=== PATIENT | male | born 1960 | race Caucasian/White ===

== ENCOUNTER 2022-07-23 15:21 | Emergency (ER) | payer OTHER ==
[~2022-07-23] VITALS: Ht 182.9 cm; Wt 100.7 kg
[~2022-07-23 15:21] MED LIST: CRUTCH3 USE; DEPAKOTE; HYDACE5 PO; NAPR550 PO
[2022-07-23 15:56] LABS: BASOPHILS ABSOLUTE AUTO 0.03 K/mm3 (0.00-0.23); BASOPHILS PERCENT AUTO 1 % (0-2); EOSINOPHILS PERCENT AUTO 2 % (0-6); Hematocrit 35.9 % (37.0-53.0); IMMATURE GRAN ABSOLUTE AUTO 0.01 K/mm3 (0.00-0.10); IMMATURE GRAN PERCENT AUTO 0 % (0-1); LYMPHOCYTES ABSOLUTE AUTO 3.13 K/mm3 (0.84-5.20); LYMPHOCYTES PERCENT AUTO 47 % (21-46); MONOCYTES ABSOLUTE AUTO 0.58 K/mm3 (0.16-1.47); MONOCYTES PERCENT AUTO 9 % (4-13); Mean Corpuscular HGB 32.3 pg (26.0-34.0); Mean Corpuscular HGB Conc 36.2 g/dL (31.5-36.5); Mean Corpuscular Volume 89 fL (80-100); Mean Platelet Volume 10.2 fL (9.1-12.4); NEUTROPHILS ABSOLUTE AUTO 2.81 K/mm3 (1.96-9.15); NEUTROPHILS PERCENT AUTO 42 % (41-73); Platelet Count 173 K/mm3 (150-400); RDW Coefficient Variation 12.4 % (11.7-14.2); RDW Standard Deviation 40.8 fL (35.1-46.3); Red Blood Cell Count 4.03 M/mm3 (4.30-5.90); White Blood Cell Count 6.66 K/mm3 (4.00-11.30)
[2022-07-23 16:16] LABS: Albumin, Blood 3.7 g/dL (3.4-5.0); Albumin/Globulin Ratio 1.1 (0.8-1.8); Bilirubin, Total 0.4 mg/dL (0.1-1.0); Bun/Creatinine Ratio 8.8 (12.0-20.0); Creatinine, Blood 1.02 mg/dL (0.60-1.20); Globulin, Blood 3.3 g/dL (2.2-4.0); Potassium, Blood 3.7 mmol/L (3.5-5.5)
== END 2022-07-23 19:38 | disposition left against medical advice (07) ==
LOC: ER 15:21
PROVIDERS: Physician Assistant
DX: R07.9 Chest pain, unspecified (principal); Z53.21 Procedure and treatment not carried out due to patient leaving prior to being seen by health care provider
CPT/HCPCS: 36415; 71046; 80053; 83880; 84484; 85025; 93005; 93010

== ENCOUNTER 2022-11-19 06:09 | Emergency (ER) | payer OTHER ==
[~2022-11-19] VITALS: Ht 188 cm; Wt 113.0 kg
[2022-11-19 06:45] VITALS: BP 131/66
== END 2022-11-19 07:24 | disposition home or self-care (01) ==
LOC: ER 06:09
DX: R60.0 Localized edema (principal); F17.210 Nicotine dependence, cigarettes, uncomplicated; Z88.2 Allergy status to sulfonamides
CPT/HCPCS: 99283

== ENCOUNTER 2023-06-09 11:25 | Emergency (ER) | payer OTHER ==
[~2023-06-09] VITALS: Ht 182.9 cm; Wt 102.5 kg
[2023-06-09] MEDS ORDERED: Naprosyn500 MG PO (11:59)
[2023-06-09 12:25] VITALS: BP 126/76
== END 2023-06-09 12:25 | disposition home or self-care (01) ==
LOC: ER 11:25
DX: M25.572 Pain in left ankle and joints of left foot (principal); F17.200 Nicotine dependence, unspecified, uncomplicated; F20.0 Paranoid schizophrenia; Z88.2 Allergy status to sulfonamides; Z79.899 Other long term (current) drug therapy
CPT/HCPCS: 99283; A9270

== ENCOUNTER 2024-02-03 16:18 | Emergency (ER) | payer OTHER ==
[~2024-02-03] VITALS: Ht 182.9 cm; Wt 99.8 kg
[~2024-02-03 16:18] MED LIST changes: +CYCL10 PO; +FAMO20 PO; +LIDO700A20 TOP; +Naprosyn500 MG PO
[2024-02-03 18:29] LABS: Source, Urine Clean Catch
[2024-02-03 18:34] LABS: Appearance, Urine Clear (Clear); Bilirubin, Urine Neg (Neg); Blood, Urine Neg (Neg); Color, Urine Yellow (P-Yellow); Glucose Qualitative, Urine 2+ (Neg); Ketones, Urine Neg (Neg); Leukocyte Esterase, Urine Neg (Neg); Nitrite, Urine Neg (Neg); Protein, Urine Neg (Neg); Urobilinogen, Urine NORM (Normal); pH, Urine 6.5 (5.0-8.0)
[2024-02-03 18:49] LABS: BASOPHILS ABSOLUTE AUTO 0.05 K/mm3 (0.00-0.23); BASOPHILS PERCENT AUTO 0 % (0-2); EOSINOPHILS ABSOLUTE AUTO 0.01 K/mm3 (0.00-0.68); EOSINOPHILS PERCENT AUTO 0 % (0-6); Hematocrit 35.4 % (37.0-53.0); Hemoglobin 12.3 g/dL (13.5-17.5); IMMATURE GRAN ABSOLUTE AUTO 0.07 K/mm3 (0.00-0.10); IMMATURE GRAN PERCENT AUTO 0 % (0-1); LYMPHOCYTES ABSOLUTE AUTO 3.14 K/mm3 (0.84-5.20); LYMPHOCYTES PERCENT AUTO 19 % (21-46); MONOCYTES ABSOLUTE AUTO 1.17 K/mm3 (0.16-1.47); MONOCYTES PERCENT AUTO 7 % (4-13); Mean Corpuscular HGB 32.9 pg (26.0-34.0); Mean Corpuscular HGB Conc 34.7 g/dL (31.5-36.5); Mean Corpuscular Volume 95 fL (80-100); Mean Platelet Volume 10.7 fL (9.1-12.4); NEUTROPHILS ABSOLUTE AUTO 11.92 K/mm3 (1.96-9.15); NEUTROPHILS PERCENT AUTO 73 % (41-73); Platelet Count 237 K/mm3 (150-400); RDW Coefficient Variation 12.7 % (11.7-14.2); RDW Standard Deviation 43.8 fL (35.1-46.3); Red Blood Cell Count 3.74 M/mm3 (4.30-5.90); White Blood Cell Count 16.36 K/mm3 (4.00-11.30)
[2024-02-03] MEDS ORDERED: Ketorolac Tromethamine 30mg Vial IV ONE (19:10)
[2024-02-03 19:12] LABS: Albumin, Blood 3.3 g/dL (3.4-5.0); Albumin/Globulin Ratio 0.9 (0.8-1.8); Bilirubin, Total 0.4 mg/dL (0.1-1.0); Calcium, Blood 8.8 mg/dL (8.5-10.1); Creatinine, Blood 0.71 mg/dL (0.60-1.20); Globulin, Blood 3.6 g/dL (2.2-4.0); Potassium, Blood 3.7 mmol/L (3.5-5.5); Total Protein, Blood 6.9 g/dL (6.4-8.2)
[2024-02-03 21:00] VITALS: BP 122/99
[2024-02-03] MEDS ORDERED: XARELTO15 M1 PO (22:53)
[2024-02-04] MEDS ORDERED: Rivaroxaban 10 MG Tab PO SCH (09:00)
== END 2024-02-03 23:15 | disposition home or self-care (01) ==
LOC: ER 16:18
PROVIDERS: Student in an Organized Health Care Education/Training Program
DX: I82.411 Acute embolism and thrombosis of right femoral vein (principal); I82.431 Acute embolism and thrombosis of right popliteal vein; Z88.2 Allergy status to sulfonamides; Z79.899 Other long term (current) drug therapy; E11.9 Type 2 diabetes mellitus without complications; F17.200 Nicotine dependence, unspecified, uncomplicated
CPT/HCPCS: 73502; 80053; 81003; 85025; 93971; 96374; 99284-25; J1885

== ENCOUNTER 2024-06-20 20:09 | Emergency (ER) | payer SELFPAY ==
[~2024-06-20] VITALS: Ht 182.9 cm; Wt 81.7 kg
[~2024-06-20 20:09] MED LIST changes: +XARELTO15 M1 PO
[2024-06-20 20:30] VITALS: BP 161/96
[2024-06-20] MEDS ORDERED: Cephalexin Monohydrate 500 MG Cap PO ONE (20:40)
[2024-06-20] MEDS ORDERED: CEPH500 PO (20:41)
== END 2024-06-20 20:59 | disposition home or self-care (01) ==
LOC: ER 20:09
DX: L03.115 Cellulitis of right lower limb (principal); E11.9 Type 2 diabetes mellitus without complications; F17.200 Nicotine dependence, unspecified, uncomplicated; Z79.899 Other long term (current) drug therapy; Z88.2 Allergy status to sulfonamides
CPT/HCPCS: 99283; A9270

== ENCOUNTER 2024-07-13 11:18 | Observation (INO) | payer OTHER ==
[~2024-07-13] VITALS: Ht 177.8 cm; Wt 90.7 kg
[~2024-07-13 11:18] MED LIST changes: +CEPH500 PO
[2024-07-13] MEDS ORDERED: Haloperidol Lactate Inj. 5 MG/ML Injection IM ONE (11:40)
[2024-07-13] MEDS ORDERED: DiphenhydrAMINE HCl 50 MG/ML 1ML Vial IM ONE (11:40)
[2024-07-13] MEDS ORDERED: LORazepam 2 MG/ML 1ML Injection IM ONE (11:40)
[2024-07-13 12:23] LABS: BASOPHILS ABSOLUTE AUTO 0.06 K/mm3 (0.00-0.23); BASOPHILS PERCENT AUTO 1 % (0-2); EOSINOPHILS ABSOLUTE AUTO 0.02 K/mm3 (0.00-0.68); EOSINOPHILS PERCENT AUTO 0 % (0-6); Hematocrit 44.6 % (37.0-53.0); Hemoglobin 15.8 g/dL (13.5-17.5); IMMATURE GRAN ABSOLUTE AUTO 0.07 K/mm3 (0.00-0.10); IMMATURE GRAN PERCENT AUTO 1 % (0-1); LYMPHOCYTES ABSOLUTE AUTO 2.54 K/mm3 (0.84-5.20); LYMPHOCYTES PERCENT AUTO 28 % (21-46); MONOCYTES ABSOLUTE AUTO 0.84 K/mm3 (0.16-1.47); MONOCYTES PERCENT AUTO 9 % (4-13); Mean Corpuscular HGB 32.7 pg (26.0-34.0); Mean Corpuscular HGB Conc 35.4 g/dL (31.5-36.5); Mean Corpuscular Volume 92 fL (80-100); Mean Platelet Volume 10.4 fL (9.1-12.4); NEUTROPHILS ABSOLUTE AUTO 5.51 K/mm3 (1.96-9.15); NEUTROPHILS PERCENT AUTO 61 % (41-73); Platelet Count 243 K/mm3 (150-400); RDW Coefficient Variation 12.5 % (11.7-14.2); RDW Standard Deviation 42.5 fL (35.1-46.3); Red Blood Cell Count 4.83 M/mm3 (4.30-5.90); White Blood Cell Count 9.04 K/mm3 (4.00-11.30)
[2024-07-13 12:51] LABS: Ethanol (Alcohol), Blood, Med <3 mg/dL; Free Thyroxine 1.24 ng/dL (0.70-1.60); Salicylate 3.8 mg/dL (2.8-20.0)
[2024-07-13 12:54] LABS: Acetaminophen, Random <2.0 ug/mL (10.0-30.0); Alanine Aminotransfer (ALT/SGP 37 U/L (12-78); Albumin, Blood 3.9 g/dL (3.4-5.0); Alk Phos 64 U/L (50-136); Anion Gap 15 mmol/L (3-11); Aspartate Aminotrans (AST/SGOT 57 U/L (12-37); Blood Urea Nitrogen 21 mg/dL (8-24); Bun/Creatinine Ratio 15.2 (12.0-20.0); CO2, Blood 21 mmol/L (21-32); Calcium, Blood 10.1 mg/dL (8.5-10.1); Chloride, Blood 103 mmol/L (98-108); Creatinine, Blood 1.38 mg/dL (0.60-1.20); Globulin, Blood 3.8 g/dL (2.2-4.0); Glomerular Filtration Rate 58 (60-); Glucose, Blood 215 mg/dL (70-99); Potassium, Blood 3.2 mmol/L (3.5-5.5); Sodium, Blood 136 mmol/L (136-145); Total Protein, Blood 7.7 g/dL (6.4-8.2)
[2024-07-13] MEDS ORDERED: Potassium Chl 20MEQ/Water100ML 100 ML IV ONE ×2 (13:10→14:00)
[2024-07-13] MEDS ORDERED: NS 1,000 ML IV SCH (13:10)
[2024-07-13] MEDS ORDERED: Potassium Chl 20MEQ/Water100ML 100 ML IV SCH (13:30)
[2024-07-13] MEDS ORDERED: Potassium Chloride 40 MEQ in NS 250 ML IV ONE (13:35)
[2024-07-13 13:59] LABS: Influenza A, PCR NEGATIVE (NEGATIVE); Influenza B, PCR NEGATIVE (NEGATIVE); Resp Syncytial Virus, PCR NEGATIVE (NEGATIVE); SARS-Cov-2 (COVID-19) PCR, MMC NEGATIVE (NEGATIVE)
[2024-07-13] MEDS ORDERED: Potassium Chloride 20 MEQ TabCR PO ONE (14:00)
[2024-07-13] MEDS ORDERED: Potassium Chl 10MEQ/Water100ML 100 ML IV SCH (14:30)
[2024-07-13] MEDS ORDERED: DEPAKOTE ER500 M2 PO (14:52)
[2024-07-13] MEDS ORDERED: AMLODIPINE BESYL5 MG PO (14:53)
[2024-07-13] MEDS ORDERED: ABILIFY5 MG PO (14:53)
[2024-07-13 15:49] LABS: Source, Urine Clean Catch
[2024-07-13 15:55] LABS: Appearance, Urine Clear (Clear); Bilirubin, Urine Neg (Neg); Blood, Urine 1+ (Neg); Color, Urine Yellow (P-Yellow); Glucose Qualitative, Urine Neg (Neg); Ketones, Urine 1+ (Neg); Leukocyte Esterase, Urine Neg (Neg); Nitrite, Urine Neg (Neg); Protein, Urine 2+ (Neg); Specific Gravity, Urine 1.015 (1.003-1.022); Urobilinogen, Urine NORM (Normal)
[2024-07-13 16:04] LABS: Red Blood Cells, Urine 0-2 /hpf (0-2); White Blood Cells, Urine 0-2 /hpf (0-5)
[2024-07-13 16:05] LABS: Bacteria Not Seen /hpf; Hyaline Casts 0-2 /lpf (0-2); Squamous Epithelial Cells Not Seen /hpf (Few)
[2024-07-13 16:09] LABS: U Amphetamine Screen Not Detected; U Barbituate Screen Not Detected; U Benzodiazapine Screen Not Detected; U Buprenorphine Screen Not Detected; U Cannabinoids Screen DETECTED; U Cocaine Screen Not Detected; U Methadone Screen Not Detected; U Methamphetamine Screen Not Detected; U Opiates Screen Not Detected; U Oxycodone Screen Not Detected; U Phencyclidine Screen Not Detected
[2024-07-13] MEDS ORDERED: LORazepam 1 MG Tab PO ONE (21:30)
[2024-07-14 08:04] LABS: Albumin, Blood 3.1 g/dL (3.4-5.0); Albumin/Globulin Ratio 0.9 (0.8-1.8); Bilirubin, Total 0.8 mg/dL (0.1-1.0); Bun/Creatinine Ratio 18.4 (12.0-20.0); Calcium, Blood 9.4 mg/dL (8.5-10.1); Creatinine, Blood 0.87 mg/dL (0.60-1.20); Globulin, Blood 3.5 g/dL (2.2-4.0); Potassium, Blood 3.6 mmol/L (3.5-5.5); Total Protein, Blood 6.6 g/dL (6.4-8.2)
[2024-07-14 08:34] LABS: LDL/HDL RATIO 1.9
[2024-07-14 08:35] LABS: CHOL/HDL RATIO 3.2; Cholesterol 135 mg/dL (50-200); HDL Cholesterol 42 mg/dL (>39); Low Density Lipoprotein Chol 78 mg/dL (0-110); Triglycerides 74 mg/dL (30-160); Very Low Density Lipoprot Chol 14 mg/dL (6-32)
[2024-07-14] MEDS ORDERED: NS 1,000 ML IV SCH (09:15)
[2024-07-14 11:27] VITALS: BP 148/96
[2024-07-14] MEDS ORDERED: XARELTO20 MG PO (14:37)
[2024-07-14] MEDS ORDERED: LIDO700A20 TOP (14:45)
[2024-07-14] MEDS ORDERED: ACET500 PO (14:45)
[2024-07-17 10:36] LABS: AMITRIPTYLINE, QUANT, URN <100 ng/mL; CLOMIPRAMINE QUANT, URN <200 ng/mL; DESIPRAMINE QUANT, URN <100 ng/mL; DOXEPIN QUANT, URN <100 ng/mL; IMIPRAMINE QUANT, URN <100 ng/mL; NORCLOMIPRAMINE QUANT, URN <200 ng/mL; NORDOXEPIN QUANT, URN <100 ng/mL; NORTRIPTYLINE, QUANT, URN <100 ng/mL; PROTRIPTYLINE QUANT, URN <100 ng/mL
== END 2024-07-14 16:47 | disposition home or self-care (01) ==
LOC: ER 11:18 → EOR 11:19
PROVIDERS: Student in an Organized Health Care Education/Training Program; ADMIT Emergency Medicine
DX: F10.239 Alcohol dependence with withdrawal, unspecified (principal); F20.0 Paranoid schizophrenia; E11.9 Type 2 diabetes mellitus without complications; Z79.01 Long term (current) use of anticoagulants; Z79.899 Other long term (current) drug therapy; Z88.2 Allergy status to sulfonamides
CPT/HCPCS: 0241U; 80053; 80061; 80320; 81001; 82550; 84439; 84443; 85025; 86592; 93005; 93010; 96361; 96365; 96366; 96372-59; 99285-25; A9270; G0378; G0480; G0481; J1200; J1630; J2060; J3480; J7030; J7050

== ENCOUNTER 2025-03-20 10:15 | Inpatient (IN) | payer OTHER ==
[~2025-03-20] VITALS: Ht 182.9 cm; Wt 105.0 kg
[~2025-03-20 10:15] MED LIST changes: +ABILIFY5 MG PO; +ACET500 PO; +AMLODIPINE BESYL5 MG PO; +DEPAKOTE ER500 M2 PO; +XARELTO20 MG PO
[2025-03-20] MEDS ORDERED: Vitamin D1000 UNI1 PO (11:06)
[2025-03-20] MEDS ORDERED: Prinivil10 MG PO (11:10)
[2025-03-20] MEDS ORDERED: AMARYL PO (11:10)
[2025-03-20 11:25] LABS: BASOPHILS ABSOLUTE AUTO 0.02 K/mm3 (0.00-0.23); BASOPHILS PERCENT AUTO 0 % (0-2); EOSINOPHILS ABSOLUTE AUTO 0.00 K/mm3 (0.00-0.68); EOSINOPHILS PERCENT AUTO 0 % (0-6); Hematocrit 37.4 % (37.0-53.0); Hemoglobin 13.1 g/dL (13.5-17.5); IMMATURE GRAN ABSOLUTE AUTO 0.03 K/mm3 (0.00-0.10); IMMATURE GRAN PERCENT AUTO 0 % (0-1); LYMPHOCYTES ABSOLUTE AUTO 2.61 K/mm3 (0.84-5.20); LYMPHOCYTES PERCENT AUTO 31 % (21-46); MONOCYTES ABSOLUTE AUTO 0.59 K/mm3 (0.16-1.47); MONOCYTES PERCENT AUTO 7 % (4-13); Mean Corpuscular HGB Conc 35.0 g/dL (31.5-36.5); Mean Corpuscular Volume 95 fL (80-100); NEUTROPHILS ABSOLUTE AUTO 5.08 K/mm3 (1.96-9.15); NEUTROPHILS PERCENT AUTO 61 % (41-73); NRBC ABSOLUTE 0.00 K/mm3 (0.00-0.02); NRBC Auto 0.0 /100 WBC (0.0-0.2); Platelet Count 212 K/mm3 (150-400); RDW Coefficient Variation 13.2 % (11.7-14.2); RDW Standard Deviation 46.9 fL (35.1-46.3)
[2025-03-20] MEDS ORDERED: METFORMIN HCL500 MG PO (11:30)
[2025-03-20] MEDS ORDERED: MAGNESIUM OXID500 MG PO (11:30)
[2025-03-20] MEDS ORDERED: OLAN10 PO (11:31)
[2025-03-20] MEDS ORDERED: PANT40 PO (11:31)
[2025-03-20] MEDS ORDERED: PIOG15 PO (11:31)
[2025-03-20 11:41] LABS: Alanine Aminotransfer (ALT/SGP 63.0 U/L (12-78); Albumin, Blood 3.6 g/dL (3.4-5.0); Albumin/Globulin Ratio 1.1 (0.8-1.8); Anion Gap 9.0 mmol/L (3-11); Aspartate Aminotrans (AST/SGOT 53.0 U/L (12-37); Bilirubin, Total 0.4 mg/dL (0.1-1.0); Blood Urea Nitrogen 23.0 mg/dL (8-24); CO2, Blood 26.0 mmol/L (21-32); Calcium, Blood 9.6 mg/dL (8.5-10.1); Chloride, Blood 101.0 mmol/L (98-108); Creatinine, Blood 1.55 mg/dL (0.60-1.20); Globulin, Blood 3.4 g/dL (2.2-4.0); Glucose, Blood 148.0 mg/dL (70-99); Potassium, Blood 4.2 mmol/L (3.5-5.5); Sodium, Blood 132.0 mmol/L (136-145); Total Protein, Blood 7.0 g/dL (6.4-8.2)
[2025-03-20 13:46] LABS: Source, Urine Clean Catch
[2025-03-20 13:49] LABS: Bilirubin, Urine Neg (Neg); Color, Urine Yellow (P-Yellow); Glucose Qualitative, Urine Neg (Neg); Ketones, Urine 1+ (Neg); Leukocyte Esterase, Urine Neg (Neg); Protein, Urine 2+ (Neg); Specific Gravity, Urine 1.025 (1.003-1.022); Urobilinogen, Urine NORM (Normal)
[2025-03-20 14:01] LABS: Red Blood Cells, Urine 0-2 /hpf (0-2); White Blood Cells, Urine 0-2 /hpf (0-5)
[2025-03-20 14:14] LABS: U Amphetamine Screen Not Detected; U Barbituate Screen Not Detected; U Benzodiazapine Screen Not Detected; U Buprenorphine Screen Not Detected; U Cannabinoids Screen Not Detected; U Cocaine Screen Not Detected; U Methadone Screen Not Detected; U Methamphetamine Screen DETECTED; U Opiates Screen Not Detected; U Oxycodone Screen Not Detected; U Phencyclidine Screen Not Detected
[2025-03-20 15:56] LABS: Ethanol (Alcohol), Blood, Med <3 mg/dL
[2025-03-20] MEDS ORDERED: NS 1,000 ML IV SCH (16:00)
[2025-03-20] MEDS ORDERED: Insulin Human Lispro 100 Units/ML 3ML Syringe SC SCH (16:30)
[2025-03-20 18:32] VITALS: BP 129/84
--- NOTE | 2025-03-20 19:25 | NUR ---
SHIFT SUMMARY/ADMIT NOTE- PT ADMITTED THROUGH THE ED, ARRIVED ON MED FLOOR VIA GURNEY AND WAS SLIDDER TRANSFERED TO THE BED. LINNENS CHANGED, WEIGHT CHECKED TELE PLACED AND VERIFIED, 2 RN SKIN CHECK COMPLETED WITH ALIA HOPKINS, NO NOTED AREAS OF BREAKDOWN. PT WAS PROVIDED A MEAL TRAY AFTER HE ARRIVED. BEDSIDE REPORT COMPLETED WITH NIGHT RN, NO S&S OF DISTRESS NOTED ON ROOM AIR.
[2025-03-20] MEDS ORDERED: Divalproex Sodium 500 MG TABCR PO SCH (21:00)
[2025-03-20 23:55] VITALS: BP 119/81
[2025-03-21] VITALS (8 sets, daily range): BP systolic 117–182; BP diastolic 76–109
--- NOTE | 2025-03-21 05:42 | NUR ---
PT A&OJ X4, VS WNL, PO INTAKE WNL, DENIES PAIN, TELE NSR IN 60'S, INCONTINENT OF BLADDER WITH LARGE VOID. REMAINS ON IVF. CBG 178 NO COVERAGE NEEDED. CAN UTILIZE CALL SYSTEM, NO D/C PLAN AT THIS TIME.
[2025-03-21 05:48] LABS: BASOPHILS ABSOLUTE AUTO 0.04 K/mm3 (0.00-0.23); BASOPHILS PERCENT AUTO 1 % (0-2); EOSINOPHILS ABSOLUTE AUTO 0.05 K/mm3 (0.00-0.68); EOSINOPHILS PERCENT AUTO 1 % (0-6); Hematocrit 35.7 % (37.0-53.0); Hemoglobin 12.3 g/dL (13.5-17.5); IMMATURE GRAN ABSOLUTE AUTO 0.02 K/mm3 (0.00-0.10); IMMATURE GRAN PERCENT AUTO 0 % (0-1); LYMPHOCYTES ABSOLUTE AUTO 3.86 K/mm3 (0.84-5.20); LYMPHOCYTES PERCENT AUTO 45 % (21-46); MONOCYTES ABSOLUTE AUTO 0.61 K/mm3 (0.16-1.47); MONOCYTES PERCENT AUTO 7 % (4-13); Mean Corpuscular HGB Conc 34.5 g/dL (31.5-36.5); Mean Corpuscular Volume 96 fL (80-100); NEUTROPHILS ABSOLUTE AUTO 3.96 K/mm3 (1.96-9.15); NEUTROPHILS PERCENT AUTO 46 % (41-73); NRBC ABSOLUTE 0.00 K/mm3 (0.00-0.02); NRBC Auto 0.0 /100 WBC (0.0-0.2); Platelet Count 203 K/mm3 (150-400); RDW Coefficient Variation 13.4 % (11.7-14.2); RDW Standard Deviation 47.4 fL (35.1-46.3)
[2025-03-21 06:10] LABS: Anion Gap 8.0 mmol/L (3-11); Blood Urea Nitrogen 29.0 mg/dL (8-24); CO2, Blood 26.0 mmol/L (21-32); Calcium, Blood 9.7 mg/dL (8.5-10.1); Chloride, Blood 103.0 mmol/L (98-108); Creatinine, Blood 1.2 mg/dL (0.60-1.20); Glucose, Blood 121.0 mg/dL (70-99); Potassium, Blood 4.4 mmol/L (3.5-5.5); Sodium, Blood 133.0 mmol/L (136-145)
[2025-03-21] MEDS ORDERED: Enoxaparin 40 MG/0.4 ML SYR SC SCH (09:00)
[2025-03-21] MEDS ORDERED: NS 1,000 ML IV SCH ×2 (11:00→11:15)
--- NOTE | 2025-03-21 18:33 | NUR ---
SHIFT SUMMARY NO ACUTE CHANGES, A/Ox3, ABLE TO MAKE NEEDS KNOWN. WITHDRAWN AND SLEEPING T/O MOST OF SHIFT - MORE AWAKE @ DINNER TIME BUT NOT ORIENTED TO OWN ABILITY. PT OVERESTIMATING HIS ABILITY. BED ALARM ON DUE TO PT ATTEMPTING TO GET OOB INDEPENDENTLY. INCONT/CONT OF URINE. GOOD ORAL INTAKE, FOR FLUID INTAKE. NS RUNNING @ 75 ML/HR, ONE MORE BAG AFTER THIS BAG COMPLETES. PT CURRENTLY RESTING IN BED WITH BED IN LOWEST POSITION AND CALL LIGHT WITHIN REACH.
[2025-03-22] VITALS (7 sets, daily range): BP systolic 112–176; BP diastolic 69–110
[2025-03-22 05:10] LABS: BASOPHILS ABSOLUTE AUTO 0.06 K/mm3 (0.00-0.23); BASOPHILS PERCENT AUTO 1 % (0-2); EOSINOPHILS ABSOLUTE AUTO 0.13 K/mm3 (0.00-0.68); EOSINOPHILS PERCENT AUTO 1 % (0-6); Hematocrit 36.8 % (37.0-53.0); Hemoglobin 12.9 g/dL (13.5-17.5); IMMATURE GRAN ABSOLUTE AUTO 0.03 K/mm3 (0.00-0.10); IMMATURE GRAN PERCENT AUTO 0 % (0-1); LYMPHOCYTES ABSOLUTE AUTO 4.46 K/mm3 (0.84-5.20); LYMPHOCYTES PERCENT AUTO 47 % (21-46); MONOCYTES ABSOLUTE AUTO 0.85 K/mm3 (0.16-1.47); MONOCYTES PERCENT AUTO 9 % (4-13); Mean Corpuscular HGB Conc 35.1 g/dL (31.5-36.5); Mean Corpuscular Volume 94 fL (80-100); NEUTROPHILS ABSOLUTE AUTO 4.02 K/mm3 (1.96-9.15); NEUTROPHILS PERCENT AUTO 42 % (41-73); NRBC ABSOLUTE 0.00 K/mm3 (0.00-0.02); NRBC Auto 0.0 /100 WBC (0.0-0.2); Platelet Count 207 K/mm3 (150-400); RDW Coefficient Variation 12.9 % (11.7-14.2); RDW Standard Deviation 45.1 fL (35.1-46.3)
--- NOTE | 2025-03-22 05:31 | NUR ---
SHIFT SUMMARY PATIENT A/O X3 THROUGHOUT SHIFT, PLEASANT AND COOPERATIVE WITH CARE. INCONT OF URINE, MALE PUREWICK APPLIED, GOOD OUTPUT OF CLEAR YELLOW URINE NOTED. PT REPORTING PAIN, CALLED PROVIDER AND RECIEVED ORDER FOR TYLENOL. GIVEN WITH ADEQUATE RELIEF. NO REPORTS FROM ENGINE BUILDUP MECHANIC THROUGHOUT SHIFT. PATIENT RESTED WELL. NO ACUTE CHANGES. BED IN LOWEST POSITION W/ CALL LIGHT IN REACH.
[2025-03-22 05:36] LABS: Anion Gap 8.0 mmol/L (3-11); Blood Urea Nitrogen 18.0 mg/dL (8-24); CO2, Blood 28.0 mmol/L (21-32); Calcium, Blood 9.1 mg/dL (8.5-10.1); Chloride, Blood 104.0 mmol/L (98-108); Creatinine, Blood 0.98 mg/dL (0.60-1.20); Glucose, Blood 113.0 mg/dL (70-99); Potassium, Blood 3.8 mmol/L (3.5-5.5); Sodium, Blood 136.0 mmol/L (136-145)
--- NOTE | 2025-03-22 08:27 | NUR ---
BLOOD PRESSURE 176/100 THIS AM, RN RECHECKED WITH MANUAL BP WITH READING OF 165/110. PT REPORTS SOME CHEST PAIN DURING NOC SHIFT BUT NONE CURRENTLY. SR @ 76 PER SUPERVISOR PILE DRIVING. RN UPDATED HOSPITALIST VIA PHONE CALL. HOSPITALIST TO REVIEW CHART AND ORDER MEDICATIONS. NO NEW ORDERS FOR RN TO IMPLEMENT AT THIS TIME.
[2025-03-22] MEDS ORDERED: MetFORMIN HCl 500 mg PO SCH (09:00)
[2025-03-22] MEDS ORDERED: Cholecalciferol 1000 Unit Tablet (=25MCG) PO SCH (09:00)
[2025-03-22 15:45] LABS: U Amphetamine Screen Not Detected; U Barbituate Screen Not Detected; U Benzodiazapine Screen Not Detected; U Buprenorphine Screen Not Detected; U Cannabinoids Screen Not Detected; U Cocaine Screen Not Detected; U Methadone Screen Not Detected; U Methamphetamine Screen Not Detected; U Opiates Screen Not Detected; U Oxycodone Screen Not Detected; U Phencyclidine Screen Not Detected
--- NOTE | 2025-03-22 16:05 | NUR ---
SHIFT SUMMARY NO ACUTE CHANGES, A/Ox3, ABLE TO MAKE NEEDS KNOWN. PT SLEEPING UNLESS IT IS MEAL TIME. ENCOURAGING REPOSITIONING Q2H. WICKING SYSTEM IN PLACE - DUE TO BE CHANGED ON NOC SHIFT PER PROTOCOL. ENCOURAGING FLUID INTAKE. GOOD ORAL INTAKE. IV FLUIDS COMPLETED. REPEAT TOX SCREEN COMPLETED PER PT AND POA REQUEST. PT DENIES PAIN. PT CURRENTLY RESTING IN BED AND APPEARS TO BE IN NO DISTRESS. CALL LIGHT WITHIN REACH, BED IN LOWEST POSITION, BED ALARM ON.
[2025-03-23 00:51] VITALS: BP 127/73
--- NOTE | 2025-03-23 04:57 | NUR ---
SHIFT SUMMARY PATIENT A/O X3-4, FORGETFUL AT TIMES. PLEASANT AND COOPERATIVE THROUGHOUT SHIFT. PATIENT REPORTS SLIGHT PAIN ON HIS LEFT SIDE, UNDER HIS RIBS. STATES THAT THIS IS CHRONIC PAIN. TYLENOL GIVEN PER EMAR WITH ADEQUATE RELIEF. VITAL SIGNS REMAINED STABLE. NO TELE EVENTS REPORTED. NO CHEST PAIN/ PRESSURE OR SOB. NO ACUTE EVENTS THROUGHOUT SHIFT. BED IN LOWEST POSITION AND CALL LIGHT IN REACH.
[2025-03-23 05:25] VITALS: BP 143/89
--- NOTE | 2025-03-23 05:45 | NUR ---
PATIENT REPORTED CHEST/ESQUIVEL/RIB PAIN. PATIENT CURRENTLY ON TELE. TELE REPORTS NORMAL SINUS IN THE 60'S WITH BBB. THIS RN CALLED AND REPORTED TO DR RENATO BLOOD ORDERED FENTANYL IV Q4H 25-50 PRN FOR PAIN.
[2025-03-23] MEDS ORDERED: FentaNYL Citrate 50 MCG/ML 2 ML Injection IV PRN (07:15)
[2025-03-23 08:39] VITALS: BP 127/93
[2025-03-23 15:43] VITALS: BP 147/88
--- NOTE | 2025-03-23 17:43 | NUR ---
SHIFT SUMMARY PT MORE ALERT TODAY, AWAKE T/O SHIFT, A/Ox4. INTAKING PO FLUIDS WELL, AND EATING 100% OF ALL MEALS. DENIES PAIN. WORKING WITH PT/OT - STILL NOT AMBULATING AT BASELINE. VITALS STABLE. NO ACUTE CHANGES. PT CURRENTLY RESTING IN BED WITH BED IN LOWEST POSITION AND CALL LIGHT WITHIN REACH. PT APPEARS TO BE IN NO DISTRESS.
[2025-03-23 20:43] VITALS: BP 156/89
[2025-03-24 03:39] VITALS: BP 118/77
--- NOTE | 2025-03-24 06:11 | NUR ---
SHIFT SUMMARY PATIENT A/O X3 THROUGHOUT SHIFT. PLEASANT AND COOPERATIVE WITH CARE. NO ACUTE CHANGES THROUGHOUT SHIFT. VITAL SIGNS REMAINED STABLE. NO REPORT OF CHEST PAIN OR PRESSURE. TYLENOL GIVEN FOR BACK/LEG PAIN. VOIDING WELL, PUREWICK DRAINING BRADEN URINE. WILL REPORT TO ONCOMING RN, CALL LIGHT IN REACH AND BED IN LOWEST POSITION.
[2025-03-24 07:08] VITALS: BP 93/67
[2025-03-24] MEDS ORDERED: Polyethylene Glycol 3350 17 gm PO ONE (11:55)
[2025-03-24] MEDS ORDERED: ALLO300 PO (12:46)
[2025-03-24] MEDS ORDERED: ACETAMINOPHEN500 M2 PO (12:46)
[2025-03-24] MEDS ORDERED: ACET325 PO (12:50)
[2025-03-24 15:14] VITALS: BP 137/86
--- NOTE | 2025-03-24 15:48 | NUR ---
DISCHARGE NOTE PATIENT A/OX4, FORGETFUL AT TIMES, EASY TO REORIENT. PLEASANT AND COOPERATIVE WITH CARE. 2 PERSON ASSIST, PARTICIPATED IN PHYSICAL THERAPY TODAY.TYLENOL ADMINISTERED FOR RIGHT SIDED HIP PAIN, EFFECTIVE. PATIENT WITH NO BM X4 DAYS, MD NOTIFIED AND BOWEL MEDS ORDERED AND EFFECTIVE. PATIENT WITH LARGE BM THIS SHIFT. NO OTHER CONCERNS AT THIS TIME, RE[facility] IV REMOVED PRIOR TO DISCHARGE. ALL BELONGINGS SENT WITH PATIENT, TRANSPORTATION ARRIVED TO TRANSFER PATIENT TO SNF.
[2025-03-24 16:01] LABS: CORONAVIRUS COVID-19 AG Negative (NEGATIVE)
== END 2025-03-24 15:50 | DRG 683 ==
LOC: ER 10:15 → MEDS 10:16 → ER 10:16 → ERHOLD 10:16 → MEDS 10:17 → ERHOLD 18:15 → MEDS 18:15
PROVIDERS: Emergency Medicine; Internal Medicine; Physician Assistant; Student in an Organized Health Care Education/Training Program; ADMIT Student in an Organized Health Care Education/Training Program
DX: N17.9 Acute kidney failure, unspecified (principal); F20.0 Paranoid schizophrenia; I82.401 Acute embolism and thrombosis of unspecified deep veins of right lower extremity; E11.9 Type 2 diabetes mellitus without complications; I10 Essential (primary) hypertension; I95.1 Orthostatic hypotension; E86.0 Dehydration; R54 Age-related physical debility; I44.0 Atrioventricular block, first degree; Z66 Do not resuscitate; F17.200 Nicotine dependence, unspecified, uncomplicated; R89.3 Abnormal level of substances chiefly nonmedicinal as to source in specimens from other organs, systems and tissues; Z88.2 Allergy status to sulfonamides; Z79.84 Long term (current) use of oral hypoglycemic drugs; Z79.01 Long term (current) use of anticoagulants
CPT/HCPCS: 36415; 70450; 71046; 80048; 80053; 80164; 80320; 81001; 82140; 82550; 82947; 85025; 87426-QW; 93005; 93010; 96360; 97110; 97161; 97530; 99285-25; A9270; G0378; J7030

== ENCOUNTER 2025-07-04 17:10 | Inpatient (IN) | payer OTHER ==
[~2025-07-04] VITALS: Ht 182.9 cm; Wt 108.4 kg
[~2025-07-04 17:10] MED LIST changes: +ACET325 PO; +ACETAMINOPHEN500 M2 PO; +ALLO300 PO; +AMARYL PO; +MAGNESIUM OXID500 MG PO; +METFORMIN HCL500 MG PO; +OLAN10 PO; +PANT40 PO; +PIOG15 PO; +Prinivil10 MG PO; +Vitamin D1000 UNI1 PO
[2025-07-04 17:35] LABS: BASOPHILS ABSOLUTE AUTO 0.04 K/mm3 (0.00-0.23); BASOPHILS PERCENT AUTO 1 % (0-2); EOSINOPHILS ABSOLUTE AUTO 0.04 K/mm3 (0.00-0.68); EOSINOPHILS PERCENT AUTO 1 % (0-6); Hematocrit 40.6 % (37.0-53.0); Hemoglobin 13.9 g/dL (13.5-17.5); IMMATURE GRAN ABSOLUTE AUTO 0.02 K/mm3 (0.00-0.10); IMMATURE GRAN PERCENT AUTO 0 % (0-1); LYMPHOCYTES ABSOLUTE AUTO 3.43 K/mm3 (0.84-5.20); LYMPHOCYTES PERCENT AUTO 50 % (21-46); MONOCYTES ABSOLUTE AUTO 0.76 K/mm3 (0.16-1.47); MONOCYTES PERCENT AUTO 11 % (4-13); Mean Corpuscular HGB Conc 34.2 g/dL (31.5-36.5); Mean Corpuscular Volume 96 fL (80-100); NEUTROPHILS ABSOLUTE AUTO 2.64 K/mm3 (1.96-9.15); NEUTROPHILS PERCENT AUTO 38 % (41-73); NRBC ABSOLUTE 0.00 K/mm3 (0.00-0.02); NRBC Auto 0.0 /100 WBC (0.0-0.2); Platelet Count 170 K/mm3 (150-400); RDW Coefficient Variation 12.4 % (11.7-14.2); RDW Standard Deviation 44.0 fL (35.1-46.3)
[2025-07-04 17:45] LABS: Source, Urine Foley catheter
[2025-07-04 17:48] LABS: Bilirubin, Urine Neg (Neg); Color, Urine Yellow (P-Yellow); Glucose Qualitative, Urine 4+ (Neg); Ketones, Urine 1+ (Neg); Leukocyte Esterase, Urine Neg (Neg); Protein, Urine Neg (Neg); Specific Gravity, Urine 1.010 (1.003-1.022); Urobilinogen, Urine NORM (Normal)
[2025-07-04 18:03] LABS: Ethanol (Alcohol), Blood, Med <3 mg/dL; Thyroid Stimulating Hormone 0.947 uIU/mL (0.360-4.800)
[2025-07-04 18:10] LABS: Alanine Aminotransfer (ALT/SGP 33 U/L (12-78); Albumin, Blood 3.2 g/dL (3.4-5.0); Albumin/Globulin Ratio 0.8 (0.8-1.8); Anion Gap 9 mmol/L (3-11); Aspartate Aminotrans (AST/SGOT 21 U/L (12-37); Bilirubin, Total 0.3 mg/dL (0.1-1.0); Blood Urea Nitrogen 27 mg/dL (8-24); CO2, Blood 27 mmol/L (21-32); Calcium, Blood 10.1 mg/dL (8.5-10.1); Chloride, Blood 98 mmol/L (98-108); Creatinine, Blood 1.46 mg/dL (0.60-1.20); Globulin, Blood 4.1 g/dL (2.2-4.0); Glucose, Blood 602 mg/dL (70-99); Potassium, Blood 5.0 mmol/L (3.5-5.5); Sodium, Blood 129 mmol/L (136-145); Total Protein, Blood 7.3 g/dL (6.4-8.2)
[2025-07-04] MEDS ORDERED: Insulin Human Regular 100 UNIT in NS 100 ML IV SCH (19:00)
[2025-07-04] MEDS ORDERED: NS 1,000 ML IV SCH (19:35)
[2025-07-04] MEDS ORDERED: FLU VACC TS2025-26(6MOS UP)/PF 45 MCG/0.5 ML SYRINGE IM SCH (19:40)
[2025-07-04 20:57] LABS: U Amphetamine Screen Not Detected; U Barbiturate Screen Not Detected; U Benzodiazapine Screen Not Detected; U Buprenorphine Screen Not Detected; U Cannabinoids Screen Not Detected; U Cocaine Screen Not Detected; U Methadone Screen Not Detected; U Methamphetamine Screen Not Detected; U Opiates Screen Not Detected; U Oxycodone Screen Not Detected; U Phencyclidine Screen Not Detected
[2025-07-04] MEDS ORDERED: Divalproex Sodium 500 MG TABCR PO SCH (21:00)
[2025-07-04] MEDS ORDERED: Insulin Glargine-Yfgn 100 Unit/mL 3 ML SYR SC ONE (21:00)
[2025-07-04 21:01] LABS: Glucose, Blood 446 mg/dL (70-99)
[2025-07-04 22:26] VITALS: BP 127/89
--- NOTE | 2025-07-04 23:31 | NUR ---
ASSUMPTION OF CARE LATE ENTRY PT ARRIVED TO PCU 8 AT APPROXIMATELY 2217. PT SLID TO HOSPITAL BED. VSS, AFEBRILE. PT IS A&O TO PERSON AND PLACE. HE IS UNABLE TO EXPLAIN SITUATION AND CANNOT RECALL THE DATE OTHER THAN IT IS NEAR ANJANA TIME. PW PLACED ON PT FOR INCONTINENCE. AL PHARMACY CONTACTED FOR MEDICATION LIST SINCE PATIENT IS A POOR HISTORIAN. HE CONTINUES TO BE SOMNOLENT BUT RESPONDS TO VERBAL STIMULI. FLUIDS INFUSING PER EMAR. PT IS RESTING IN BED, CALL LIGHT IN REACH, BREATHING IS EVEN AND UNLABORED.
[2025-07-05] MEDS ORDERED: Insulin Regular 100 UNIT/ML 10ML Vial SC SCH
--- NOTE | 2025-07-05 00:01 | NUR ---
PROVIDER CONTACT NOTIFIED RESIDENT OF BLOOD SUGAR OF 382. HE WOULD LIKE TO ADMINISTER 10 UNITS INSULIN PER EMAR AND FOLLOW AC/ Q6 HOUR DOSING.
[2025-07-05] MEDS ORDERED: Voltaren100 GM TOP (00:28)
[2025-07-05] MEDS ORDERED: FLUT.05NI UD (00:31)
[2025-07-05] MEDS ORDERED: B-12500 MC2 PO (00:32)
[2025-07-05] MEDS ORDERED: MELATONIN5 M1 PO (00:33)
[2025-07-05] MEDS ORDERED: LIDO700A20 TOP (00:35)
[2025-07-05] MEDS ORDERED: ASPI325 PO (00:36)
[2025-07-05 03:16] VITALS: BP 105/80
[2025-07-05 04:48] LABS: BASOPHILS ABSOLUTE AUTO 0.04 K/mm3 (0.00-0.23); BASOPHILS PERCENT AUTO 1 % (0-2); EOSINOPHILS ABSOLUTE AUTO 0.05 K/mm3 (0.00-0.68); EOSINOPHILS PERCENT AUTO 1 % (0-6); Hematocrit 38.8 % (37.0-53.0); Hemoglobin 13.3 g/dL (13.5-17.5); IMMATURE GRAN ABSOLUTE AUTO 0.03 K/mm3 (0.00-0.10); IMMATURE GRAN PERCENT AUTO 0 % (0-1); LYMPHOCYTES ABSOLUTE AUTO 4.00 K/mm3 (0.84-5.20); LYMPHOCYTES PERCENT AUTO 51 % (21-46); MONOCYTES ABSOLUTE AUTO 0.71 K/mm3 (0.16-1.47); MONOCYTES PERCENT AUTO 9 % (4-13); Mean Corpuscular HGB Conc 34.3 g/dL (31.5-36.5); Mean Corpuscular Volume 97 fL (80-100); NEUTROPHILS ABSOLUTE AUTO 3.05 K/mm3 (1.96-9.15); NEUTROPHILS PERCENT AUTO 39 % (41-73); NRBC ABSOLUTE 0.00 K/mm3 (0.00-0.02); NRBC Auto 0.0 /100 WBC (0.0-0.2); Platelet Count 153 K/mm3 (150-400); RDW Coefficient Variation 12.7 % (11.7-14.2); RDW Standard Deviation 45.2 fL (35.1-46.3)
--- NOTE | 2025-07-05 05:01 | NUR ---
SHIFT SUMMARY NO ACUTE EVENTS SINCE ASSUMPTION OF CARE. PT REMAINS A&O X2, RESPONDS TO VERBAL STIMULI. PT HAD INITIALLY REFUSED MORNING LABS DUE TO "QUAKER BELIEFS", WHEN ASKED ABOUT THIS HE DID NOT ELABORATE BUT HE DID STATE THAT HE "DOESN'T WANT TO BE HERE IN THE FIRST PLACE". EDUCATED PATIENT ON IMPORTANCE OF GETTING BLOOD WORK DONE. PATIENT RELUCTANTLY AGREED TO GET LAB DRAW DONE. BED ALARM ON FOR SAFETY. Q4 CBGS WITH BLOOD SUGAR TRENDING DOWN. PW IN PLACE. LR INFUSING PER EMAR. VSS, AFEBRILE, SPO2 >93% ON 1-2L NC WHILE ASLEEP. PT DENIES SOB OR CP. CALL LIGHT IN REACH, BREATHING EVEN AND UNLABORED.
[2025-07-05 05:10] LABS: Anion Gap 4.0 mmol/L (3-11); Blood Urea Nitrogen 23.0 mg/dL (8-24); CO2, Blood 30.0 mmol/L (21-32); Calcium, Blood 10.2 mg/dL (8.5-10.1); Chloride, Blood 106.0 mmol/L (98-108); Creatinine, Blood 1.11 mg/dL (0.60-1.20); Glucose, Blood 260.0 mg/dL (70-99); Potassium, Blood 4.1 mmol/L (3.5-5.5); Sodium, Blood 136.0 mmol/L (136-145)
[2025-07-05] MEDS ORDERED: Insulin Glargine-Yfgn 100 Unit/mL 3 ML SYR SC SCH ×2 (07:00→21:00)
[2025-07-05 07:57] VITALS: BP 149/90
[2025-07-05] MEDS ORDERED: Enoxaparin 40 MG/0.4 ML SYR SC SCH (09:00)
--- NOTE | 2025-07-05 10:27 | NUR ---
ASSUMPTION OF CARE: PATIENT IS IMPROVING IN MENTATION, APPEARS TO WAX AND WANE, HOWEVER, AT THIS TIME IS A/O X 3, BUT AT TIMES CANNOT FOLLOW COMMANDS WELL AND IS UNSAFELY ATTEMPTING TO GET OUT OF BED, PATIENT IS EXTREMELY WEAK WITH A VERY LIKELIHOOD OF FALLING, SPOKE WITH PRIMER CHARGING TOOL SETTER AND SITTER AT BEDSIDE JULIANA BYERS. FINISHED INFUSING LR. STILL CHECKING Q4 CBG. ATTENDING AND RESIDENT ROUNDED. DENIES CHEST PAIN PRESSURE OR SOB AT REST. PLAN OF CARE CONTINUES.
[2025-07-05 11:44] VITALS: BP 114/71
--- NOTE | 2025-07-05 12:45 | NUR ---
TRANSFER OF CARE FROM PCU8. PT ARRIVED VIA HOSPITAL BED, DROWSY BUT AROUSABLE TO VERBAL COMMAND PER REPORT PT ALERT AND ORIENTED X3 AND CAN BE PARANOID AT TIMES, ON 1L NC DUE TO DESATURATION WHEN RESTING. CONSISTANT CARB DIET WITH MOST RECENT CBG 162. TELEMETRY IN PLACE AND PER RN REPORT-SR FIRST DEGREE BLOCK AND LBBB. PURWICK IN PLACE AND TO WALL SUCTION. PER REPORT PT HAD TWO LARGE BM'S TODAY AND IS ABLE TO FEED SELF AFTE SET UP. BED ALARM ON DUE TO HIGH FALL RISK, BED SIDE TABLE IN REACH, CALL LIGHT IN REACH.
[2025-07-05 16:05] VITALS: BP 104/79
[2025-07-05] MEDS ORDERED: Insulin Human Lispro 100 Units/ML 3ML Syringe SC SCH (17:30)
--- NOTE | 2025-07-05 17:35 | NUR ---
PT ALERT AND ORIENTED X3, NO CHANGES SINCE ADMIT TO MEDICAL UNIT EXCEPT PT NOW ON RA AND FULLY AWAKE, PT MAY NEED OXYGEN WHILE AT REST-BASELINE RA. DENIES PAIN, EATING MEALS AND BLOOD GLUCOSE BELOW 200. ORDERS FOR SSI, 5 UNITS SCHEDULED WITH MEALS-HUMILOG AND LONG ACTING AT BEDTIME. PT HAS BEEN CALM, COOPERATIVE. ASKS WHEN DISCHARGE WILL HAPPEN-INFORMED TBD TOMMOROW. BED ALARM ON, CALL LIGHT IN REACH. PT CALLS APPROPRIATELY.
[2025-07-05 20:10] VITALS: BP 119/89
[2025-07-06] VITALS (7 sets, daily range): BP systolic 113–145; BP diastolic 82–106
--- NOTE | 2025-07-06 05:25 | NUR ---
Shift Summary- - Events: CBG checks (q4) remain elevated; medications administered per EMR. The patient rested in bed and appeared very tired. - Safety: Fall risk; bed alarm is active. - Orientation: A/Ox3. Patient is intermittently confused regarding location and situation. - Ambulation: Weak; fall risk. Requires a 2-person stand and pivot to BSC. - Medication: Taken whole with water. - Toileting: Urination via male PureWick; BM to BSC.
--- NOTE | 2025-07-06 06:18 | NUR ---
Stool testing and covid testing- This testing was ordered but never collected. Patient has resolved sx. Closing the order as the lab requests.
[2025-07-06 06:48] LABS: Anion Gap 6.0 mmol/L (3-11); Blood Urea Nitrogen 20.0 mg/dL (8-24); CO2, Blood 28.0 mmol/L (21-32); Calcium, Blood 10.3 mg/dL (8.5-10.1); Chloride, Blood 105.0 mmol/L (98-108); Creatinine, Blood 1.01 mg/dL (0.60-1.20); Glucose, Blood 209.0 mg/dL (70-99); Potassium, Blood 4.1 mmol/L (3.5-5.5); Sodium, Blood 135.0 mmol/L (136-145)
[2025-07-06] MEDS ORDERED: Insulin Human Lispro 100 Units/ML 3ML Syringe SC SCH ×2 (08:30→11:30)
--- NOTE | 2025-07-06 16:48 | NUR ---
CALLED DR SONG FOR ORDER CLARIFICATION- PT NO LONGER HAS AN ORDER FOR TELE. DC TELE WAS NEVER ORDERED. VERIFIED NO NEED FOR TELE. BOTH IV'S ARE BAD, ONE PAINFULL AND RED THE OTHER LEAKY AND NOT PATENT. ORDER RECIEVED FOR NO IV ACCESS SINCE ACCESS WAS LOST.
[2025-07-06 17:23] LABS: CORONAVIRUS COVID-19 AG Negative (NEGATIVE)
--- NOTE | 2025-07-06 17:48 | NUR ---
PT ALERT AND ORIENTED X3, TRANSFERS 1P FWW FROM BED TO RECLINER CHAIR CAN BE UNSTEADY AT TIMES. USES URINAL INDEPENDENTLY. BLOOD GLUCOSE IN 200'S-ACHS CHECKS. PLAN FOR DISCHARGE [facility] BED APPROVED-PLAN FOR DC AT 1400. TELEMETRY SR WITH 1ST DEGREE BLOCK AND BBB HR 75-BEFORE TELEMETRY DC. NO IV ACCESS ODER PER MD. PT RECEIVED FIRST DOSE OF AMARYL PO THIS EVENING. TOLERATING DIET WELL. COVED RAPID SWAB COLLECTED AND SENT TO LAB- DC REQUEST PRIOR TO ADMITTING PT. BED ALARM ON, CALL LIGHT IN REACH.
[2025-07-06] MEDS ORDERED: Insulin Glargine-Yfgn 100 Unit/mL 3 ML SYR SC SCH (21:00)
--- NOTE | 2025-07-07 02:05 | NUR ---
REPORT PROVIDED TO GEOVANNA FISH. PT RESTING W/O S/S DISTRESS AT THIS TIME.
[2025-07-07 05:30] VITALS: BP 143/94
--- NOTE | 2025-07-07 05:55 | NUR ---
SHIFT SUMMARY: PT AOX4, SOME CONFUSION AND FORGETFULNESS BUT REORIENTS EASILY. CBGS STILL RELATIVELY HIGH, ONLY SOME SNACKS OFFERED. TOLERATING PUREWICK AND MEDICATIONS WELL. NO ACUTE OVERNIGHT EVENTS. PT IN BED RESTING, BED IN LOWEST POSITION, CALL LIGHT IN REACH. CONTINUING CARE.
[2025-07-07 06:38] LABS: Anion Gap 12.0 mmol/L (3-11); Blood Urea Nitrogen 20.0 mg/dL (8-24); CO2, Blood 22.0 mmol/L (21-32); Calcium, Blood 9.7 mg/dL (8.5-10.1); Chloride, Blood 101.0 mmol/L (98-108); Creatinine, Blood 1.02 mg/dL (0.60-1.20); Glucose, Blood 266.0 mg/dL (70-99); Potassium, Blood 4.0 mmol/L (3.5-5.5); Sodium, Blood 131.0 mmol/L (136-145)
[2025-07-07 07:11] VITALS: BP 121/99
[2025-07-07] MEDS ORDERED: Insulin Human Lispro 100 Units/ML 3ML Syringe SC SCH (08:30)
[2025-07-07] MEDS ORDERED: Cholecalciferol 1000 Unit Tablet (=25MCG) PO SCH (09:00)
[2025-07-07] MEDS ORDERED: BASAGLAR K100 UNIT/1 SC (12:33)
[2025-07-07] MEDS ORDERED: HUMALOG KW100 UNIT/1 SC (12:34)
--- NOTE | 2025-07-07 13:20 | NUR ---
RN TO RN REPORT: FULL REPORT CALLED TO MARICARMEN PERSAUD AND GIVEN TO SHAD ROJO AT 1312. PLAN FOR DC TO FACILITY AT 1400.
[2025-07-07 13:42] VITALS: BP 107/76
--- NOTE | 2025-07-07 14:33 | NUR ---
DISCHARGE NOTE: PT DISCHARGED TO [facility] AT 1400 VIA TRANSPORT. PT SELF TRANSFERRED CONTACT GUARD TO . ALL BELONGINGS WITH PT. PT ALERT AND ORIENTED X3, DENIES PAIN.
== END 2025-07-07 13:55 | DRG 637 ==
LOC: ER 17:10 → ICUE 17:11 → PCU 17:11 → MEDS 07-05 11:29 → ENPENDDIS 07-07 11:54 → MEDS 07-07 13:55
PROVIDERS: Emergency Medicine; Family Medicine; ADMIT Internal Medicine
DX: E11.65 Type 2 diabetes mellitus with hyperglycemia (principal); G92.8 Other toxic encephalopathy; F20.0 Paranoid schizophrenia; N17.9 Acute kidney failure, unspecified; E87.1 Hypo-osmolality and hyponatremia; F17.210 Nicotine dependence, cigarettes, uncomplicated; I10 Essential (primary) hypertension; I12.9 Hypertensive chronic kidney disease with stage 1 through stage 4 chronic kidney disease, or unspecified chronic kidney disease; E11.22 Type 2 diabetes mellitus with diabetic chronic kidney disease; N18.2 Chronic kidney disease, stage 2 (mild); R05.9 Cough, unspecified; Z88.2 Allergy status to sulfonamides; Z86.718 Personal history of other venous thrombosis and embolism; Z79.899 Other long term (current) drug therapy; Z79.84 Long term (current) use of oral hypoglycemic drugs; Z79.01 Long term (current) use of anticoagulants
CPT/HCPCS: 36415; 70450; 71045; 80048; 80053; 80164; 80320; 81003; 82550; 82947; 83036; 83930; 84145; 84443; 84484; 85025; 87426-QW; 93005; 93010; 96361; 96365; 97116; 97162; 99285-25; A9270; G0378; J0456; J1650; J1815; J7030; J7050; J7120